=== PATIENT | female | born 1985 | race Caucasian/White ===

== ENCOUNTER 2018-05-01 05:28 | Inpatient (IN) ==
[2018-05-01] MEDS ORDERED: CITRIC ACID/SODIUM CITRATE 30 ML UDCUP PO ONE (05:50)
[2018-05-01] MEDS ORDERED: FAMOTIDINE 20 MG/2 ML VIAL IV ONE (05:50)
[2018-05-01] MEDS ORDERED: ceFAZolin 2,000 MG in PREMIX 1 EACH IV ONE (05:50)
[2018-05-01] MEDS: LACTATED RINGERS 1,000 ML IV SCH ×2 (06:20→19:30)
[2018-05-01 06:30] LABS: Basophils % 0.2 % (0.0-0.8); Eosinophils % 0.2 % (0.00-10.9); Hematocrit 37.3 VOL% (35.7-47.0); Hemoglobin 12.1 GM/DL (12.0-16.0); Immature Granulocytes Absolute 0.11 #; Lymphocytes # 1.4 10*3/uL (1.4-4.0); Lymphocytes % 12.3 % (21.3-54.2); Mean Corpuscular HGB Conc 32.4 GM/DL (32-36); Mean Corpuscular Hemoglobin 31 PG (27-34); Mean Corpuscular Volume 95.4 FL (87-102); Mean Platelet Volume 10.9 FL (9.6-12.0); Monocytes # 0.6 10*3/uL (0.11-0.8); Monocytes % 5.6 % (1.7-12.7); Neutrophils # 9.2 10*3/uL (1.4-7.4); Neutrophils % 80.7 % (38.7-73.9); Platelet Count 166 T/CUMM (130-400); Red Blood Count 3.91 MC/CUMM (3.8-5.5); Red Cell Distribution Width 12.7 % (9.3-17.3); White Blood Count 11.4 T/CUMM (4-12)
[2018-05-01] MEDS ORDERED: MORPHINE 10 MG/10 ML VIAL ONE (07:16)
[2018-05-01] MEDS ORDERED: ONDANSETRON 4 MG/2 ML VIAL ONE (07:16)
[2018-05-01] MEDS ORDERED: KETOROLAC 60 MG/2 ML VIAL IM ONE (07:16)
[2018-05-01] MEDS ORDERED: fentaNYL 100 MCG/2 ML VIAL ONE (07:16)
[2018-05-01] MEDS ORDERED: BUPIVACAINE SPINAL 0.75% 2 ML AMP SPINAL ONE (07:16)
[2018-05-01] MEDS ORDERED: OXYTOCIN 10 UNIT/ML VIAL ONE (07:16)
[2018-05-01] MEDS ORDERED: PHENYLEPHRINE 1 MG/10 ML SYRINGE IV ONE ×2 (07:16→09:09)
[2018-05-01] MEDS ORDERED: BUPIVACAINE 0.25% 50 ML VIAL ONE (07:17)
[2018-05-01] MEDS ORDERED: OXYTOCIN/LR 20 UNIT/1,000 ML BAG IV ONE ×2 (07:19→08:43)
[2018-05-01] MEDS ORDERED: EPINEPHrine 1 MG/ML VIAL ONE (08:26)
[2018-05-01] MEDS ORDERED: ACETAMINOPHEN 325 MG TABLET PO PRN (08:43)
[2018-05-01] MEDS ORDERED: SIMETHICONE CHEW 80 MG TABLET PO PRN (08:43)
[2018-05-01] MEDS ORDERED: RHO(D) IMMUNE GLOBULIN 300 MCG SYRINGE IM ONE (08:43)
[2018-05-01] MEDS ORDERED: ONDANSETRON 4 MG/2 ML VIAL IV PRN (08:43)
[2018-05-01] MEDS ORDERED: LACTATED RINGERS 1,000 ML IV SCH (09:00)
[2018-05-01] MEDS ORDERED: HYDROmorphone 2 MG/1 ML VIAL IV PRN (09:06)
[2018-05-01] MEDS ORDERED: diphenhydrAMINE 50 MG/1 ML VIAL IV PRN (09:06)
[2018-05-01] MEDS ORDERED: hydrOXYzine HCL 25 MG/1 ML VIAL IM PRN (09:06)
[2018-05-01 09:10] LABS: Apearance,Urine CLEAR (Clear); Bacteria,Urine Occasional /HPF (Few); Bilirubin,Urine Negative (Negative); Blood, Urine Small mg/dL (Negative); Glucose,Urine (UA) Negative (Negative); Ketones,Urine Negative (Negative); Nitrite,Urine Negative (Negative); Protein,Urine Negative; Squamous Epithelial Cell,Urine Occasional /HPF (0-10); Urine Color Yellow (Yellow); Urine Specific Gravity 1.005 (1.001-1.035); Urine Urobilinogen < 2.0 EU/DL (0.2-1.0); WBC,Urine <1 /HPF (0-6)
[2018-05-01] MEDS: ceFAZolin 1,000 MG in SYRINGE 1 EACH IV SCH ×2 (16:29→18:55)
[2018-05-01] MEDS: KETOROLAC 30 MG/1 ML VIAL IV SCH (16:33)
[2018-05-01] MEDS: DOCUSATE SODIUM 100 MG CAPSULE PO SCH (18:30)
[2018-05-01] MEDS: MULTIVITAMIN (PRENATAL) TABLET PO SCH (18:30)
[2018-05-01 19:05] LABS: Basophils % 0.2 % (0.0-0.8); Eosinophils % 0.2 % (0.00-10.9); Hematocrit 31.8 VOL% (35.7-47.0); Hemoglobin 10.5 GM/DL (12.0-16.0); Immature Granulocytes % 0.5 %; Immature Granulocytes Absolute 0.05 #; Lymphocytes # 1.3 10*3/uL (1.4-4.0); Lymphocytes % 11.6 % (21.3-54.2); Mean Corpuscular Hemoglobin 31 PG (27-34); Mean Corpuscular Volume 93.5 FL (87-102); Monocytes # 0.4 10*3/uL (0.11-0.8); Monocytes % 3.3 % (1.7-12.7); Neutrophils # 9.2 10*3/uL (1.4-7.4); Neutrophils % 84.2 % (38.7-73.9); Platelet Count 140 T/CUMM (130-400); Red Cell Distribution Width 12.7 % (9.3-17.3); White Blood Count 10.9 T/CUMM (4-12)
[2018-05-02] MEDS ORDERED: ceFAZolin 1,000 MG in SYRINGE 1 EACH IV SCH
[2018-05-02] MEDS: DOCUSATE SODIUM 100 MG CAPSULE PO SCH ×3 (00:27→21:08)
[2018-05-02] MEDS ORDERED: KETOROLAC 30 MG/1 ML VIAL ONE (05:33)
[2018-05-02] MEDS: KETOROLAC 30 MG/1 ML VIAL IV SCH (05:40)
[2018-05-02 06:10] LABS: Basophils % 0.1 % (0.0-0.8); Eosinophils % 0.3 % (0.00-10.9); Hemoglobin 10.5 GM/DL (12.0-16.0); Immature Granulocytes % 0.6 %; Immature Granulocytes Absolute 0.06 #; Lymphocytes # 1.4 10*3/uL (1.4-4.0); Mean Corpuscular HGB Conc 32.8 GM/DL (32-36); Mean Corpuscular Hemoglobin 31 PG (27-34); Mean Corpuscular Volume 93.8 FL (87-102); Mean Platelet Volume 10.7 FL (9.6-12.0); Monocytes # 0.4 10*3/uL (0.11-0.8); Monocytes % 3.6 % (1.7-12.7); Neutrophils # 8.6 10*3/uL (1.4-7.4); Neutrophils % 82.4 % (38.7-73.9); Platelet Count 149 T/CUMM (130-400); Red Blood Count 3.41 MC/CUMM (3.8-5.5); Red Cell Distribution Width 12.7 % (9.3-17.3); White Blood Count 10.4 T/CUMM (4-12)
[2018-05-02] MEDS: MULTIVITAMIN (PRENATAL) TABLET PO SCH (09:43)
[2018-05-02] MEDS: IBUPROFEN 800 MG TABLET PO PRN (16:07)
[2018-05-02] MEDS: guaiFENesin/CODEINE 5 ML LIQUID PO PRN ×2 (16:07→21:26)
[2018-05-02] MEDS: LACTATED RINGERS 1,000 ML IV SCH ×2 (16:08→16:09)
[2018-05-02] MEDS: oxyCODONE/ACETAMINOPHEN 5-325 MG TABLET PO PRN ×2 (18:09→21:25)
[2018-05-02] MEDS: MAGNESIUM HYDROXIDE SUSP 30 ML UDCUP PO PRN (21:08)
[2018-05-03] MEDS: oxyCODONE/ACETAMINOPHEN 5-325 MG TABLET PO PRN ×3 (01:41→14:10)
[2018-05-03] MEDS: IBUPROFEN 800 MG TABLET PO PRN (01:43)
[2018-05-03] MEDS ORDERED: IBUPROFEN 800 MG TABLET PO PRN (05:29)
[2018-05-03 07:57] VITALS: BP 92/44
[2018-05-03] MEDS: MULTIVITAMIN (PRENATAL) TABLET PO SCH (08:13)
[2018-05-03] MEDS: MAGNESIUM HYDROXIDE SUSP 30 ML UDCUP PO PRN (08:13)
[2018-05-03] MEDS: DOCUSATE SODIUM 100 MG CAPSULE PO SCH (08:13)
[2018-05-03] MEDS: guaiFENesin/CODEINE 5 ML LIQUID PO PRN (12:37)
== END 2018-05-03 16:45 | disposition home or self-care (01) | DRG 788 ==
LOC: N.LD 05:28 → N.OB 12:30
PROVIDERS: ADMIT Obstetrics & Gynecology; ATTEND Obstetrics & Gynecology
PROC: LDCSECT (ICD-10-PCS; 2018-05-01 07:30)